=== PATIENT | male | born 1960 | race Caucasian/White ===

== ENCOUNTER 2017-06-03 10:23 | Observation (INO) | payer OTHER ==
[2017-06-03] MEDS ORDERED: Nitroglycerin 0.4 MG TAB (25 Tab Bottle) ONE (10:42)
[2017-06-03] MEDS ORDERED: Nitroglycerin 2% Ointment 1 INCH/1 GM Packet ONE (10:42)
[2017-06-03 11:01] LABS: #Basophils 0.1 thou/uL (0.0-0.2); #Eosinphils 0.1 thou/uL (0.0-0.7); #Lymphocytes 1.7 thou/uL (1.20-3.40); #Monocytes 0.8 thou/uL (0.11-0.59); #Neutrophils 6.7 thou/uL (1.40-6.50); %Basophils 0.8 % (0.0-1.0); %Lymphocytes 17.8 % (21.0-51.0); %Monocytes 8.2 % (0.0-10.0); %Neutrophils 72.1 % (42.0-75.0); Hemoglobin 17.7 g/dL (14.0-18.0); Mean Corpuscular HGB CONC 34.6 g/dL (32.0-36.0); Mean Corpuscular Hemoglobin 31.1 pg (27.0-31.0); Mean Corpuscular Volume 89.9 fl (80.0-94.0); Mean Platelet Volume 7.1 fL (7.4-10.4); Platelet Count 267 thou/uL (130-400); RBC Distribution Width 11.3 % (11.5-14.5); White Blood Cell (WBC) Count 9.3 thou/uL (4.8-10.8)
--- NOTE | 2017-06-03 11:14 | RAD ---
PORTABLE CHEST: Date: 06/03/17 PROVIDED CLINICAL HISTORY: Chest pain. FINDINGS: Cardiac and mediastinal silhouette is within normal limits. Lungs appear clear. No pleural fluid or p neumothorax apparent. IMPRESSION: No evidence for an acute cardiopulmonary process. POS: [facility]
[2017-06-03 11:15] LABS: ALT (SGPT) 28 U/L (8-55); AST (SGOT) 19 U/L (5-34); Albumin 4.2 g/dL (3.5-5.0); Alkaline Phosphatase 111 U/L (40-150); Anion Gap 13 mmol/L (10-20); BUN (Urea Nitrogen) 19 mg/dL (8.4-25.7); CK (CPK) 56 U/L (30-200); Calc. Creatinine Clearance 0 mL/min (70-130); Calcium 9.6 mg/dL (7.8-10.44); Carbon Dioxide 27 mmol/L (22-29); Chloride 96 mmol/L (98-107); Estimated GFR-MDRD 75; Globulin 4.1 g/dL (2.4-3.5); Glucose 257 mg/dL (70-105); Potassium 4.1 mmol/L (3.5-5.1); Protein, Total 8.3 g/dL (6.0-8.3); Sodium 132 mmol/L (136-145)
[2017-06-03 11:17] LABS: CKMB 0.6 ng/mL (0-6.6); Troponin I 0.011 ng/mL (< 0.028)
[2017-06-03 14:11] VITALS: BMI 28.0
[2017-06-03] MEDS ORDERED: Iopamidol 370 76% 100 ML VIAL ONE (14:16)
[2017-06-03] MEDS ORDERED: Bisacodyl 5 MG TAB PO PRN (14:24)
[2017-06-03] MEDS ORDERED: Acetaminophen 325 MG TAB PO PRN (14:24)
[2017-06-03] MEDS ORDERED: Nitroglycerin 0.4 MG TAB (25 Tab Bottle) PO PRN (14:24)
[2017-06-03] MEDS ORDERED: Acetaminophen 650 MG Suppository PR PRN (14:24)
[2017-06-03 15:17] LABS: Troponin I Less than 0.010 ng/mL (< 0.028)
--- NOTE | 2017-06-03 17:15 | CT ---
CTA OF THE THORAX UTILIZING IV CONTRAST AND 3D REFORMATTED IMAGING 06/03/17 INDICATION: 56-year-old male with chest pain and elevated D-dimer. FINDINGS: No central or segmental pulmonary embolus is present. There are areas of subsegmental volume loss seen most prominently within the lower lobes, left greate r than right. There is a 6.6 mm subpleural pulmonary nodule within the posterolateral aspect of the s uperior segment of the right lower lobe on image 61 of series 3. There is a 7.7 mm pulmonary nodule w ithin the posterolateral aspect of the left lower lobe on image 7 of series 3. There is enlarged lymph nodes within the mediastinum. One of the larger lymph nodes seen within the r ight peritracheal region on image 27 of series 2 measures 1.3 cm. There is a large AP window lymph no de measuring 1.1 cm on image 36 of series 2. There is enlarged left tracheobronchial lymph node measu ring 1.3 cm image 46 of series 2. No axillary lymphadenopathy is evident. There is a mildly prominent left infrahilar lymph node measuring 1.2 cm. The visualized upper abdomen demonstrates a small cyst within the superior left kidney. There are a f ew shotty appearing lymph nodes within the upper abdomen. No focal hepatic lesion is evident. There is scattered degenerative and osteoarthritic change. IMPRESSION: 1. No central or segmental pulmonary embolus. 2. Pulmonary nodules within both lower lobes. The largest measures up to 7.7 mm. Recommend a fol lowup CT evaluation in 3 to 6 months to document stability. 3. Subsegmental volume loss in both lower lobes, left greater than right. 4. Nonspecific mildly prominent lymph nodes within the mediastinum and left hilar region. This c ould be followed up on the followup CT examination recommended above. POS: [facility]
[2017-06-03] MEDS ORDERED: Lidocaine 2% Viscous Solution 10 ML, Aluminum & Magnesium Hydroxide 30 ML SSW PRN ×2 (17:17)
--- NOTE | 2017-06-03 17:20 | HP ---
PRIMARY CARE PHYSICIAN: Kamilah Haile M.D. CHIEF COMPLAINT: Chest pain. HISTORY OF PRESENT ILLNESS: Mr. Fajardo is a pleasant 56-year-old gentleman who was seen at [facility] on 06/03/2017 after he was sent to the emergency room by his primary care blanka christiansen. He reports that he has a history of gastroesophageal reflux disease and hypertension. He was seen by his primary care physician today and informed that he also has dyslipidemia and diabetes mellitus ty pe 2. He then told her that he had epigastric/lower retrosternal pain. He was also found to be hype rtensive. She therefore sent him to the emergency room. He reports that 2 days ago, he woke up with pain in the epigastric region, dull, nonradiating, 7/10, not accompanied by shortness of breath, nausea, or lightheadedness. The pain continued until 2 p.m. yesterday, at which time it resolved. He had a recurrence of the pain at 7:00 p.m. and it was ongoin g until he came to the emergency room. REVIEW OF SYSTEMS: The following complete review of systems was negative, unless otherwise mentioned in the HPI or below: Constitutional: Weight loss or gain, ability to conduct usual activities. Skin: Rash, itching. Eyes: Double vision, pain. ENT/Mouth: Nose bleeding, neck stiffness, pain, tenderness. Cardiovascular: Palpitations, dyspnea on exertion, orthopnea. Respiratory: Shortness of breath, wheezing, cough, hemoptysis, fever or night sweats. Gastrointestinal: Poor appetite, abdominal pain, heartburn, nausea, vomiting, constipation, or diarrhea. Genitourinary: Urgency, frequency, dysuria, nocturia. Musculoskeletal: Pain, swelling. Neurologic/Psychiatric: Anxiety, depression. Allergy/Immunologic: Skin rash, bleeding tendency. PAST MEDICAL HISTORY: Significant for gastroesophageal reflux disease, hypertension, and newly diagn osed diabetes mellitus type 2, and dyslipidemia. PAST SURGICAL HISTORY: None. SOCIAL HISTORY: The patient denies tobacco use, alcohol use or recreational drug use. FAMILY HISTORY: No family history of premature coronary artery disease. ALLERGIES: No known drug allergies. CURRENT MEDICATIONS: Include losartan/hydrochlorothiazide 50/12.5 mg daily and metoprolol 25 mg 2 ti mes a day. PHYSICAL EXAMINATION: GENERAL: Mr. Fajardo is awake and alert, not in acute distress. VITAL SIGNS: Blood pressure is 134/87, pulse is 85. He is breathing at rate of 16, and saturating 9 4% on room air. He is afebrile. EYES: No scleral icterus. No conjunctival pallor. ENT: Moist mucosal membranes, no oropharyngeal erythema or exudates. NECK: Supple, nontender, normal range of movement, trachea is midline. RESPIRATORY: Accessory muscles of breathing are not active. Chest wall movements are symmetric bila terally. LUNGS: Clear to auscultation without wheeze, rhonchi or crepitations. CARDIOVASCULAR: S1 and S2 are heard, regular. LUNGS: Peripheral pulses palpable. No carotid bruit, no pericardial rub. ABDOMEN: Soft, nontender, bowel sounds heard, no hepatomegaly, no splenomegaly. NEUROLOGIC: Cranial nerves II-XII are intact. Deep tendon reflexes are 2+. MUSCULOSKELETAL: Power is 5/5 in all 4 extremities. Normal range of movement at all major extremity joints. SKIN: No rashes or subcutaneous nodules. LYMPHATIC: No cervical lymphadenopathy. PSYCHIATRIC: Normal mood, normal affect, patient is oriented to person, place, and time. LABORATORY DATA: Mr. Fajardo's labs and investigations were reviewed. I reviewed his electrocardiog beth, which shows normal sinus rhythm, no ST changes to suggest an acute coronary syndrome. I also re viewed his chest x-ray, which does not show any pulmonary infiltrates. Laboratory investigation show an unremarkable CBC, elevated D-dimer of 2.01, decreased sodium of 132, normal potassium, normal cre atinine, unremarkable liver profile and troponin I that is negative x2. ASSESSMENT AND PLAN: Mr. Fajardo is a pleasant 56-year-old gentleman who was seen at [facility] on 06/03/2017. His problem list includes: 1. Chest pain: He has chest and epigastric pain. Given his risk factors, he will be admitted to [facility] for telemetry monitoring and for stress test. We will also check CT angiogram of the ches t to rule out pulmonary embolism. 2. Hyponatremia: Mild, likely asymptomatic, we will recheck. 3. Diabetes mellitus type 2, newly diagnosed. We will start the patient on Accu-Cheks and insulin s liding scale. 4. Hypertension: Resume patient's home medications, monitor vital signs and titrate antihypertensiv es as needed. 5. Dyslipidemia: Check fasting lipid profile. Many thanks for allowing me to participate in your patient's care. Please feel free to contact me wi th any questions or concerns. LEVEL OF RISK: High. LEVEL OF COMPLEXITY: High.
[2017-06-03 19:48] LABS: Troponin I Less than 0.010 ng/mL (< 0.028)
[2017-06-03] MEDS ORDERED: Pantoprazole 40 MG VIAL IVP SCH (20:15)
[2017-06-03] MEDS: Metoprolol Tartrate 25 MG TAB PO SCH (20:28)
[2017-06-04 05:35] LABS: #Eosinphils 0.1 thou/uL (0.0-0.7); #Lymphocytes 1.2 thou/uL (1.20-3.40); #Monocytes 0.7 thou/uL (0.11-0.59); #Neutrophils 4.8 thou/uL (1.40-6.50); %Basophils 0.2 % (0.0-1.0); %Eosinophils 1.4 % (0.0-10.0); %Lymphocytes 16.8 % (21.0-51.0); %Monocytes 10.6 % (0.0-10.0); Hemoglobin 16.3 g/dL (14.0-18.0); Mean Corpuscular HGB CONC 33.3 g/dL (32.0-36.0); Mean Corpuscular Hemoglobin 29.9 pg (27.0-31.0); Mean Corpuscular Volume 89.8 fl (80.0-94.0); Mean Platelet Volume 6.9 fL (7.4-10.4); Platelet Count 260 thou/uL (130-400); RBC Distribution Width 11.3 % (11.5-14.5); Red Blood Cell (RBC) Count 5.45 mill/uL (4.70-6.10); White Blood Cell (WBC) Count 6.8 thou/uL (4.8-10.8)
[2017-06-04 05:48] LABS: Anion Gap 12 mmol/L (10-20); BUN (Urea Nitrogen) 15 mg/dL (8.4-25.7); Calc. Creatinine Clearance 128 mL/min (70-130); Calcium 9.3 mg/dL (7.8-10.44); Carbon Dioxide 27 mmol/L (22-29); Cardiac Risk 5.4 (Less than 4.5); Chloride 99 mmol/L (98-107); Cholesterol 140 mg/dl (< 200 Desired); Estimated GFR-MDRD Greater than 90; Glucose 211 mg/dL (70-105); HDL Cholesterol 26 mg/dL (>60 Neg Risk); LDL Cholesterol, Calculated 54 mg/dL; Potassium 3.7 mmol/L (3.5-5.1); Sodium 134 mmol/L (136-145); Triglycerides 302 mg/dL (Less than 150)
[2017-06-04] MEDS: Metoprolol Tartrate 25 MG TAB PO SCH ×2 (07:39→13:26)
--- NOTE | 2017-06-04 08:12 | PDOC.PN ---
- Subjective Encounter Start Date: 06/04/17 Encounter Start Time: 07:30 Subjective: pain free, very interested in going home - Objective Vital Signs & Weight: Vital Signs (12 hours) Temp Pulse Resp BP Pulse Ox 06/03/17 23:28 99.0 F 91 16 146/88 H 94 L Weight Weight 201 lb I&O: 06/03/17 06/04/17 06/05/17 06:59 06:59 06:59 Intake Total 790 Balance 790 Result Diagrams: 06/04/17 04:27 06/04/17 04:27 Phys Exam - Physical Examination Constitutional: NAD HEENT: PERRLA, moist MMs, sclera anicteric Neck: supple, full ROM Respiratory: no wheezing, no rhonchi, clear to auscultation bilateral Cardiovascular: RRR, no significant murmur Gastrointestinal: soft, non-tender Musculoskeletal: no edema Dx/Plan (1) Hypertension Code(s): I10 - ESSENTIAL (PRIMARY) HYPERTENSION Status: Chronic (2) DM2 (diabetes mellitus, type 2) Status: Chronic (3) GERD (gastroesophageal reflux disease) Code(s): K21.9 - GASTRO-ESOPHAGEAL REFLUX DISEASE WITHOUT ESOPHAGITIS Status: Chronic - Plan cont current plan of care, plan discussed w/ family bp control, f/u stress test. metformin * .
[2017-06-04] MEDS ORDERED: Non-Formulary Item 1 EACH (Lisinopril/Hydrochlorothiazide [Lisinopril-Hctz 20-12.5 Mg Tab PO SCH (09:00)
[2017-06-04] MEDS ORDERED: Pantoprazole 40 MG VIAL IVP SCH (09:00)
[2017-06-04] MEDS ORDERED: Lisinopril/Hydrochlorothiazide 20 mg/12.5 mg Tablet PO SCH (09:00)
[2017-06-04] MEDS ORDERED: Enoxaparin Sodium 40 MG/0.4 ML SYRINGE SC SCH (09:00)
[2017-06-04] MEDS ORDERED: Aspirin 325 MG TAB PO SCH (09:00)
[2017-06-04 12:10] VITALS: TEMP 97.5
--- NOTE | 2017-06-04 12:44 | NM ---
MYOCARDIAL PERFUSION AND QUANTITATED GATED SPECT STUDY: Radiation Dose: 30.8 mCi of technetium-99m sestamibi for the stress portion of exam and 30 mCi for t he resting portion of the exam. The patient was stressed using Leonardo protocol. Multiplanar and quanti tated gated SPECT images obtained. FINDINGS: Images demonstrate an ejection fraction which measures 64%. No evidence of wall motion abnormality se en. There is no evidence of reperfusion defects which improve and resolve with rest. No definite evid ence of myocardial ischemia or scar seen. IMPRESSION: Normal myocardial perfusion and quantitated gated SPECT study. POS: [facility]
[2017-06-04] MEDS ORDERED: metFORMIN 500 MG TAB PO SCH ×2 (12:45→17:00)
[2017-06-04 13:31] VITALS: BP 161/104
--- NOTE | 2017-06-04 21:51 | DIS ---
DATE OF ADMISSION: 06/03/2017 DATE OF DISCHARGE: 06/04/2017 PRIMARY DISCHARGE DIAGNOSES: 1. Gastroesophageal reflux disease. 2. Atypical chest pain. 3. Hypertension. 4. Newly diagnosed diabetes mellitus. HOSPITAL COURSE: The patient presented to the ER complaining of epigastric pain. He was seen at his primary care physician's clinic where he was to begin treatment for newly diagnosed diabetes as well as ongoing treatment for his hypertension. The patient was sent over to assess his epigastric pain. A stress test was performed, which showed no signs of ischemic disease. CTA of the thorax was also performed, which showed no central or segmental pulmonary embolus. Pulmonary nodules were noted on both lower lobes as well as some subsegmental volume loss in both lobes, left greater than right with some mildly prominent lymph nodes in the mediastinum in the left hilar region. The patient remained asymptomatic during his hospital stay. His epigastric discomfort eventually migrated into his lower abdomen, left lower quadrant. It was felt that in light of his negative stress test. This was most likely a discomfort from his gastroesophageal reflux disease. The patient was deemed stable for dis charge with follow up with his PCP Tuesday to treat his newly diagnosed diabetes and to maintain chron ic therapy of his hypertension. CONSULTANTS: None. PROCEDURES: Stress test nuclear medicine and chest thorax CTA, results as noted above. DISCHARGE DISPOSITION: To home. DISCHARGE DIET: Heart healthy. DISCHARGE MEDICATIONS: Please see medication rec list. Added on this admission is metformin 500 mg b.i.d. FOLLOWUP: The patient is to follow up with his PCP this coming Tuesday. He will follow up with GI ba sed on the recommendations of his PCP. PHYSICAL EXAMINATION: GENERAL: He is in no acute distress. HEAD: Normocephalic and atraumatic. EYES: PERRL. Extraocular muscles intact. CARDIAC: Regular rate and rhythm. No murmurs, regurg or gallops. LUNGS: Clear to auscultation. ABDOMEN: Nontender and nondistended. EXTREMITIES: No clubbing, cyanosis or edema. FOLLOWUP: As noted above.
== END 2017-06-04 14:25 | disposition home or self-care (01) ==
LOC: ERS 10:23 → 2SW 12:22
PROVIDERS: ADMIT Internal Medicine; ATTEND Internal Medicine
DX: R10.13 Epigastric pain (principal); K21.9 Gastro-esophageal reflux disease without esophagitis; I10 Essential (primary) hypertension; E11.9 Type 2 diabetes mellitus without complications; E78.5 Hyperlipidemia, unspecified; E87.1 Hypo-osmolality and hyponatremia; Z79.899 Other long term (current) drug therapy
CPT/HCPCS: 36415; 36416; 71045; 71275; 78452; 80048; 80053; 80061; 82553; 84484; 85025; 85379; 93005; 93017; 94760; 96372; 96374; 96376; A4216; A9500; C9113; G0378; J1650